=== PATIENT | female | born 1985 | race American Indian/Alaskan Native ===

== ENCOUNTER 2018-10-22 06:08 | Day surgery (SDC) | payer OTHER ==
[2018-10-22] MEDS ORDERED: NACL BACTERIOSTATIC INFILTRATI ONE (06:25)
[2018-10-22] MEDS ORDERED: LACTATED RINGERS 1,000 ML IV SCH (06:42)
[2018-10-22] MEDS ORDERED: LACTATED RINGERS 1,000 ML ONE ×2 (06:48→09:11)
[2018-10-22 07:11] LABS: Hematocrit 31.2 % (30.3-42.9); Hemoglobin 10.2 gm/dl (10.1-14.3); Mean Corpuscular HGB Conc 33 % (30-34); Mean Corpuscular Volume 71 fl (79-97); Platelet Count 302 K/mm3 (140-440); Red Blood Count 4.43 M/mm3 (3.65-5.03); Red Cell Distribution Width 19.4 % (13.2-15.2)
[2018-10-22] MEDS ORDERED: ZOFRAN IV PRN (07:21)
[2018-10-22] MEDS ORDERED: SUBLIMAZE IV PRN (07:21)
--- NOTE | 2018-10-22 07:21 | Anesthesia Day of Surgery ---
Anesthesia Day of Surgery - Day of Surgery Patient Examined: Yes Patient H&P Reviewed: Yes Patient is NPO: Yes
[2018-10-22] MEDS ORDERED: NACL 0.9% IR ONE (07:22)
--- NOTE | 2018-10-22 07:24 | Anesthesia Consultation ---
Anesthesia Consult and Med Hx Date of service: 10/22/18 - Airway Anesthetic Teeth Evaluation: Chipped ROM Head & Neck: Adequate Mental/Hyoid Distance: Adequate Mallampati Class: Class III Intubation Access Assessment: Probably Good - Pre-Operative Health Status ASA Pre-Surgery Classification: ASA2 Proposed Anesthetic Plan: General - Pulmonary Hx Smoking: No Hx Asthma: No COPD: No Hx Pneumonia: No - Cardiovascular System Hx Hypertension: Yes (since 2014) - Central Nervous System Hx Seizures: No Hx Psychiatric Problems: No - Gastrointestinal Hx Gastroesophageal Reflux Disease: No - Endocrine Hx Renal Disease: No Hx End Stage Renal Disease: No Hx Non-Insulin Dependent Diabetes: No Hx Hypothyroidism: No Hx Hyperthyroidism: No - Hematic Hx Anemia: Yes Hx Sickle Cell Disease: No - Other Systems Hx Alcohol Use: No Hx Cancer: No Hx Obesity: Yes
[2018-10-22] MEDS ORDERED: VERSED ONE (07:29)
[2018-10-22] MEDS ORDERED: DIPRIVAN 10 MG/ML IV ONE (07:29)
[2018-10-22] MEDS ORDERED: XYLOCAINE MPF 2% ONE (07:29)
--- NOTE | 2018-10-22 08:27 | Short Stay Summary ---
Short Stay Documentation Date of service: 10/22/18 Narrative H&P: Pt is a 33yo BF LMP 09/29/18 presents for surgical evaluation and treatment of endometrial polyps confirmed by pelvic u/s and endometrial biopsy. She complains of prolonged heavy vaginal bleeding, and is now scheduled for a Hysteroscopy with Polypectomy using the Myosure device. - History Principal diagnosis: Endometrial polyps H&P: obtained from office Past Medical History: hypertension Past Surgical History: Other (BTL) Social history: no significant social history, - Allergies and Medications Current Medications: Allergies No Known Allergies Allergy (Verified 10/17/18 16:09) Home Medications Medication Instructions Recorded Confirmed Last Taken Type Iron Carb,Gl/FA/B12/C/Docusate 1 tab PO DAILY 10/17/18 10/17/18 10/20/18 History [Ferralet 90 Tablet] Amlodipine Besylate/Benazepril 5 - 20 mg PO DAILY 10/22/18 10/22/18 10/20/18 History [Lotrel 5-20 mg] Active Medications Fentanyl (Sublimaze) 50 mcg IV Q5MIN PRN PRN Reason: Pain , Severe (7-10) Stop: 10/22/18 22:00 Lactated Ringer's (Lactated Ringers) 1,000 mls @ 100 mls/hr IV DIRECT AIDA Last Admin: 10/22/18 07:00 Dose: 100 mls/hr Documented by: Cefazolin Sodium (Ancef/Sterile Water 2 Gm/20 Ml) 2 gm in 20 mls @ 80 mls/hr IV PREOP NR; Protocol Ondansetron HCl (Zofran) 4 mg IV ONCE PRN PRN Reason: Nausea And Vomiting Stop: 10/22/18 20:00 - Physical exam General appearance: no acute distress Integumentary: no rash HEENT: Atraumatic Lungs: Clear to auscultation Breasts: deferred Heart: Regular rate Gastrointestinal: normal Female Genitourinary: deferred Rectal Exam: deferred Extremities: no ischemia, No edema Neurological: Normal gait, Normal speech - Brief post op/procedure progress note Date of procedure: 10/22/18 Pre-op diagnosis: Endometrial polyps Post-op diagnosis: same Procedure: Hysteroscopy with polypectomy Anesthesia: MAC Findings: An enlarged uterus with multiple endometrial polyps. Surgeon: SHELBY STEWART Estimated blood loss: minimal Pathology: list (endometrial polyps) Specimen disposition: to lab Condition: stable - Hospital course Hospital course: Unremarkable. - Disposition Condition at discharge: Good Disposition: DC- TO HOME OR SELFCARE - Discharge Diagnoses (1) Endometrial polyp Status: Resolved Short Stay Discharge Plan Activity: no restrictions Diet: regular Follow up with: SHELBY STEWART MD [Staff Physician] - 14 Days JP VILLEDA MD [Primary Care Provider] - 14 Days Prescriptions: Ibuprofen [Motrin] 800 mg PO Q8HR PRN #30 tablet PRN Reason: Pain, Mild (1-3)
[2018-10-22] MEDS ORDERED: ANCEF/STERILE WATER 2 GM/20 ML 2 GM/20 ML SYRINGE IV NR (09:00)
[2018-10-22] MEDS ORDERED: REGLAN ONE (09:11)
[2018-10-22] MEDS ORDERED: DECADRON ONE (09:11)
[2018-10-22] MEDS ORDERED: TORADOL ONE (09:11)
[2018-10-22] MEDS ORDERED: ZOFRAN ONE (09:11)
[2018-10-22] MEDS ORDERED: IBUPROFEN PO PRN (09:45)
[2018-10-22 10:38] VITALS: BP 136/86
--- NOTE | 2018-10-22 16:09 | Post Anesthesia Evaluation ---
- Post Anesthesia Evaluation Patient Participated: Yes Airway Patent: Yes Stable Respiratory Function: Yes Nausea/Vomiting: No Temp > 96.8F: Yes Pain Manageable: Yes Adequeate Hydration: Yes Anesthesia Complications: No Block Receding Appropriately: Not Applicable Patient on Ventilator: No
--- NOTE | 2018-10-22 16:21 | Operative Report ---
Operative Report Operative Report: Date of procedure: 10/21/2018 Pre-operative diagnosis: Endometrial polyps Post-operative diagnosis: Same Procedure name(s): 1. Hysteroscopy 2. Polypectomy using Myosure device Surgeon: Jovan Lozano MD Staff Home Therapy Rn: None Anesthesia: Gen. mask EBL: Minimal Findings: An enlarged uterus with multiple endometrial polyps. Procedure: After the patient was correctly identified, she was prepped and draped in the usual sterile fashion and placed in the dorsolithotomy position. First the bladder was emptied using a straight catheter, and the speculum was placed in the vaginal vault and the anterior lip of the cervix was grasped using ring forceps. The cervical os was sequentially dilated, and the hysteroscope was introduced into the cervical canal. Visualization of endometrial cavity found multiple endometrial polyps. The Myosure device was introduced into the endometrial cavity and all the endometrial polyps were removed and sent to pathology. At this time the procedure was considered complete. All instruments removed from the uterine cavity. The patient tolerated the procedure well and was transported to recovery in stable condition.
== END 2018-10-22 10:45 | disposition home or self-care (01) ==
LOC: OR 06:08
PROVIDERS: ATTEND Obstetrics & Gynecology
DX: N84.0 Polyp of corpus uteri (principal); G43.909 Migraine, unspecified, not intractable, without status migrainosus; E78.00 Pure hypercholesterolemia, unspecified; I10 Essential (primary) hypertension; E66.9 Obesity, unspecified; Z79.899 Other long term (current) drug therapy; Z98.51 Tubal ligation status; Z98.890 Other specified postprocedural states; Z86.2 Personal history of diseases of the blood and blood-forming organs and certain disorders involving the immune mechanism
CPT/HCPCS: 36415; 58558; 81025; 82962; 85027; 88305; A4217; C1782; J0690; J1100; J1885; J2250; J2405; J2704; J2765; J3010; J7120